=== PATIENT | female | born 2000 | race African-American/Black ===

== ENCOUNTER 2023-08-28 22:52 | Emergency (ER) | payer MEDICAID, OTHER ==
[~2023-08-28] VITALS: Ht 170.2 cm; Wt 126.9 kg
[2023-08-28 23:04] VITALS: BP 125/75; PULSE 83; RESP 16; O2SAT 99
[2023-08-29] MEDS ORDERED: CYCL-611 PO (01:41)
[2023-08-29] MEDS ORDERED: IBUP1TAB5 PO (01:41)
[2023-08-29] MEDS ORDERED: KETOROLAC TROMETH 60MG/2ML VIAL IM ONE (01:45)
[2023-08-29] MEDS ORDERED: DexAMETHasone SOD PHOS 10MG/1ML VIAL INJ IM ONE (01:45)
[2023-08-29] MEDS ORDERED: HYDROcodone-ACET 5/325MG TAB PO ONE (01:45)
== END 2023-08-29 06:58 | disposition home or self-care (01) ==
LOC: ER 22:52
DX: M54.42 Lumbago with sciatica, left side (principal); M79.605 Pain in left leg
CPT/HCPCS: 93971